=== PATIENT | female | born 1960 | race Caucasian/White ===

== ENCOUNTER 2020-08-17 12:17 | Emergency (ER) | payer OTHER, SELFPAY ==
[2020-08-17 12:25] VITALS: BP 123/71; PULSE 62; RESP 16; TEMP 37; O2SAT 96; BMI 21.6
--- NOTE | 2020-08-17 12:54 | ED.WEAKNESS ---
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 complaining of headache body aches not eating well no cold symptoms no cough no shortness of breath no urinary symptoms MD Complaint: generalized weakness Related Data Allergies Allergy/AdvReac Type Severity Reaction Status Date / Time aluminum hydroxide Allergy Severe ANAPHYLAXIS Unverified 05/29/20 15:25 [From Mylanta] calcium carbonate Allergy Severe ANAPHYLAXIS Unverified 05/29/20 15:25 [Calcium Carbonate] dextrose [From Metamucil] Allergy Severe ANAPHYLAXIS Unverified 05/29/20 15:25 magnesium [From Mylanta] Allergy Severe ANAPHYLAXIS Unverified 05/29/20 15:25 psyllium [From Metamucil] Allergy Severe ANAPHYLAXIS Unverified 05/29/20 15:25 simethicone [From Mylanta] Allergy Severe ANAPHYLAXIS Unverified 05/29/20 15:25 promethazine [From Phenergan] Allergy Mild EXTREME Unverified 05/29/20 15:25 TACHYCARDIA From Metamucil Allergy Severe ANAPHYLAXIS Uncoded 05/29/20 15:25 Metamucil Allergy Unknown anaphylaxis Uncoded 03/13/12 00:00 Mylanta Allergy Unknown anaphylaxis Uncoded 03/13/12 00:00 Phenergan Allergy Unknown tachycardia Uncoded 03/13/12 00:00 Review of Systems Review of Systems: REVIEW OF SYSTEMS: Pertinent positives and negatives are stated above in the history. GEN: no fevers, chills, fatigue+ HEENT: no nasal congestion, sore throat, ear pain NEURO: headache +, dizziness, focal weakness PULM: no cough, shortness of breath CV: no chest pain, palpitations, LE edema ABD: no abdominal pain, nausea, vomiting, diarrhea : no dysuria, urgency, frequency SKIN: no rash ROS otherwise negative x 10 PMFSH Social History Social History Smoked in Last 30 Days: No Use of substances other than those prescribed or required for medical reasons: No Advance Directives: No Advance Directives Information Provided: No Physical Exam Vital Signs: Vital Signs: Last Vital Signs Temp 98.6 F 08/17/20 12:25 Pulse 62 08/17/20 12:25 Resp 16 08/17/20 12:25 BP 123/71 08/17/20 12:25 Pulse Ox 96 08/17/20 12:25 Body Mass Index 21.6 VITAL SIGNS: Reviewed. GENERAL: Well developed, well nourished, in no acute distress. HEAD: Normocephalic/atraumatic, EYES: PERRLA No pallor/icterus noted OROPHARYNX: Oral mucosa moist no oral lesions NECK: Supple, no adenopathy LUNGS: Normal breath sounds. No adventitious sounds or accessory muscle use CARDIOVASCULAR: Regular rate and rhythm without noted murmurs, no JVD or lower extremity edema. ABDOMEN: Soft, non-tender, non-distended with normal bowel sounds. No rigidity. No guarding. No palpable masses or hernias noted MUSCULOSKELETAL: No tenderness, deformities, EXTREMITIES: No cyanosis or edema. SKIN: no rashes, ulcerations, jaundice, pallor, or petechiae NEUROLOGIC: Alert and oriented x 3. Strength and sensation to light touch were grossly intact normal speech MDM - Weakness MDM Narrative Medical decision making narrative: Patient nonspecific complex worried about a COVID infection without any symptoms except the weakness and headache COVID testing was done which was negative will discharge patient home advised to follow with PCP Lab Data Attestation: I reviewed the patient's lab results. Labs: Lab Results 08/17/20 Range/Units 12:36 Coronavirus (PCR) NEGATIVE (Negative) Influenza Type A (PCR) NEGATIVE (Negative) Influenza Type B (PCR) NEGATIVE (Negative) RSV RNA Qual (PCR) NEGATIVE (Negative) Discharge Plan Discharge Clinical Impression: Weakness Patient Disposition: Home, Self-Care Instructions: Weakness (ED) Additional Instructions: Drink plenty of fluids. You do not have COVID-19 infection at this time Tylenol for headache if needed
[2020-08-17 13:46] LABS: Influenza A PCR NEGATIVE (Negative); Influenza B PCR NEGATIVE (Negative); Resp Syncy Virus RNA Qual PCR NEGATIVE (Negative); SARS COV2 PCR INHOUSE NEGATIVE (Negative)
== END 2020-08-17 14:50 | disposition home or self-care (01) ==
PROVIDERS: Emergency Provider Internal Medicine; PCP Internal Medicine
DX: R51.9 Headache, unspecified (principal); R53.1 Weakness; Z20.828 Contact with and (suspected) exposure to other viral communicable diseases
CPT/HCPCS: 0241U; 99283

== ENCOUNTER 2020-08-19 16:51 | Emergency (ER) | payer OTHER, SELFPAY ==
[2020-08-19 16:56] VITALS: BP 122/74; PULSE 62; RESP 18; TEMP 36.9; O2SAT 96; BMI 19.2
--- NOTE | 2020-08-19 17:37 | ED_ITS ---
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 Patient is not on any pain medication and never behaved like this in the past. No fever no chills nausea no vomiting. Patient had dental work done about 2 weeks ago which seems to be doing okay Complaint: generalized weakness Onset (ago): day(s) (-) Related Data Home Medications Medication Instructions Recorded Confirmed No Known Home Meds 08/19/20 08/19/20 Allergies Allergy/AdvReac Type Severity Reaction Status Date / Time aluminum hydroxide Allergy Severe ANAPHYLAXIS Verified 08/19/20 20:01 [From Mylanta] calcium carbonate Allergy Severe ANAPHYLAXIS Verified 08/19/20 20:01 [Calcium Carbonate] dextrose [From Metamucil] Allergy Severe ANAPHYLAXIS Verified 08/19/20 20:01 magnesium [From Mylanta] Allergy Severe ANAPHYLAXIS Verified 08/19/20 20:01 psyllium [From Metamucil] Allergy Severe ANAPHYLAXIS Verified 08/19/20 20:01 simethicone [From Mylanta] Allergy Severe ANAPHYLAXIS Verified 08/19/20 20:01 promethazine [From Phenergan] Allergy Mild EXTREME Verified 08/19/20 20:01 TACHYCARDIA From Metamucil Allergy Severe ANAPHYLAXIS Uncoded 05/29/20 15:25 Metamucil Allergy Unknown anaphylaxis Uncoded 03/13/12 00:00 Mylanta Allergy Unknown anaphylaxis Uncoded 03/13/12 00:00 Phenergan Allergy Unknown tachycardia Uncoded 03/13/12 00:00 Review of Systems Review of Systems: REVIEW OF SYSTEMS: Pertinent positives and negatives are stated above in the history. given by pt GEN: no fevers, chills, fatigue HEENT: no nasal congestion, sore throat, ear pain NEURO: no headache, dizziness, focal weakness PULM: no cough, shortness of breath CV: no chest pain, palpitations, LE edema ABD: no abdominal pain, nausea, vomiting, diarrhea : no dysuria, urgency, frequency SKIN: no rash ROS otherwise negative x 10 PMFSH Social History Social History Alcohol intake: never Smoking Status: Never smoker Smoked in Last 30 Days: No Use of substances other than those prescribed or required for medical reasons: No Advance Directives: No Advance Directives Information Provided: Yes Physical Exam Vital Signs: Vital Signs: Last Vital Signs Temp 98.2 F 08/20/20 00:00 Pulse 59 08/20/20 00:00 Resp 14 08/20/20 00:00 BP 110/74 08/20/20 00:00 Pulse Ox 95 08/20/20 00:00 Body Mass Index 19.2 VITAL SIGNS: Reviewed. GENERAL: Well developed, well nourished, in no acute distress. HEAD: Normocephalic/atraumatic, EYES: PERRLA No pallor/icterus noted OROPHARYNX: Oral mucosa moist no oral lesions NECK: Supple, no adenopathy LUNGS: Normal breath sounds. No adventitious sounds or accessory muscle use CARDIOVASCULAR: Regular rate and rhythm without noted murmurs, no JVD or lower extremity edema. ABDOMEN: Soft, non-tender, non-distended with normal bowel sounds. No rigidity. No guarding. No palpable masses or hernias noted MUSCULOSKELETAL: No tenderness, deformities, EXTREMITIES: No cyanosis or edema. SKIN: no rashes, ulcerations, jaundice, pallor, or petechiae NEUROLOGIC: patient is confused when asked question was giving different answers but articulation was normal. sometimes patient was given the right answers, Alert and oriented x 2. Strength and sensation to light touch were grossly intact normal speech cerebellar signs are absent no focal deficit NIH Stroke Scale Internal: Initial- Upon Arrival Level of Consciousness: Alert Level of Consciousness Questions: Answers both questions correctly Level of Consciousness Commands: Performs both tasks correctly Best Gaze: Normal Visual: No visual loss Facial Palsy: Normal Motor Arm (Right): No drift Motor Arm (Left): No drift Motor Leg (Right): No drift Motor Leg (Left): No drift Limb Ataxia: Absent Sensory: Normal Best Language: No aphasia Dysarthia: Normal Extinction and Inattention: No abnormality Score: 0 Course Course Course Narrative: patient's acute change in mental status 4- 5 days duration with headache sometimes. CT scan of the head showed left frontal mass about 4.5 cm. Case discussed with neurologist Dr. Caldwell advised to transfer to [facility]. Case discussed with neurosurgeon MARIA C at [facility] advised to give IV Keppra 500 mg tonight patient already received 10 mg of Decadron in the ER rapid COVID is negative. Patient without any focal deficit GCS 15, Patient will be transferred to [facility] under hospitalist service Dr. Harrington. MDM - Weakness MDM Narrative Medical decision making narrative: patient with sudden change in personality confabulations etiology is not very clear will do the CT scan of the head to rule out frontal lobe tumor urine drug screen to rule out any substance abuse which is unlikely Medical Records Attestation: I reviewed the patient's medical records. Lab Data Attestation: I reviewed the patient's lab results. Result diagrams: 08/19/20 19:06 08/19/20 19:07 Labs: Lab Results 08/19/20 08/19/20 08/19/20 Range/Units 19:06 19:06 19:07 WBC 6.4 (4.8-10.8) X10*3/uL RBC 4.13 L (4.20-5.50) X10*6/uL Hgb 13.4 (12.0-16.0) g/dl Hct 39.5 (37-47) % MCV 95.6 (80-98) fL MCH 32.4 (27.0-33.0) pg MCHC 33.9 (31.0-35.0) g/dl RDW 11.9 (11.0-16.0) % Plt Count 248 (160-400) X10*3/uL MPV 9.8 (9.4-12.3) fL Immature Gran % (Auto) 0.3 (0.0-0.4) % Neut % (Auto) 81.5 H (45-73) % Lymph % (Auto) 12.5 L (20-40) % [place] % (Auto) 5.3 (2-11) % Eos % (Auto) 0.2 (0-4) % Baso % (Auto) 0.2 (0-2) % Lymph # (Auto) 0.8 L (1.2-4.9) X10*3/uL [place] # (Auto) 0.3 (0.1-1.2) X10*3/uL Eos # (Auto) 0.0 (0.0-0.4) X10*3/uL Baso # (Auto) 0.0 (0.0-0.2) X10*3/uL Abs Immat Gran (auto) 0.02 (0.00-0.03) X10*3/uL Absolute Neuts (auto) 5.2 (2.0-8.3) X10*3/uL Absolute Nucleated RBC 0.000 (0.0-0.012) X10*3/uL Nucleated RBC % (auto) 0.0 (0.0-0.2) /100WBC PT 13.2 H (10.8-13.0) SEC INR 1.1 (0.9-1.1) Sodium 142 (135-145) mmol/L Potassium 4.4 (3.3-5.1) mmol/l Chloride 103 (96-108) mmol/L Carbon Dioxide 28 (22-29) mmol/L Anion Gap 15 (12-20) BUN 29 H (9-16) mg/dL Creatinine 0.66 (0.5-1.4) mg/dL Estim Creat Clear Calc 84.3 Estimated GFR > 60 Random Glucose 103 (60-115) mg/dL Calcium 9.0 (8.4-10.2) mg/dL Total Bilirubin 0.4 (0.0-1.0) mg/dL Direct Bilirubin < 0.2 (0.0-0.5) mg/dL AST 22 (5-31) U/L ALT 14 (0-31) U/L Alkaline Phosphatase 83 (39-117) U/L Total Protein 7.0 (6.5-8.0) g/dL Albumin 4.1 (3.5-5.0) g/dL COVID-19 ([facility]) (Negative) COVID-19 Clin Com 08/19/20 Range/Units 20:11 WBC (4.8-10.8) X10*3/uL RBC (4.20-5.50) X10*6/uL Hgb (12.0-16.0) g/dl Hct (37-47) % MCV (80-98) fL MCH (27.0-33.0) pg MCHC (31.0-35.0) g/dl RDW (11.0-16.0) % Plt Count (160-400) X10*3/uL MPV (9.4-12.3) fL Immature Gran % (Auto) (0.0-0.4) % Neut % (Auto) (45-73) % Lymph % (Auto) (20-40) % [place] % (Auto) (2-11) % Eos % (Auto) (0-4) % Baso % (Auto) (0-2) % Lymph # (Auto) (1.2-4.9) X10*3/uL [place] # (Auto) (0.1-1.2) X10*3/uL Eos # (Auto) (0.0-0.4) X10*3/uL Baso # (Auto) (0.0-0.2) X10*3/uL Abs Immat Gran (auto) (0.00-0.03) X10*3/uL Absolute Neuts (auto) (2.0-8.3) X10*3/uL Absolute Nucleated RBC (0.0-0.012) X10*3/uL Nucleated RBC % (auto) (0.0-0.2) /100WBC PT (10.8-13.0) SEC INR (0.9-1.1) Sodium (135-145) mmol/L Potassium (3.3-5.1) mmol/l Chloride (96-108) mmol/L Carbon Dioxide (22-29) mmol/L Anion Gap (12-20) BUN (9-16) mg/dL Creatinine (0.5-1.4) mg/dL Estim Creat Clear Calc Estimated GFR Random Glucose (60-115) mg/dL Calcium (8.4-10.2) mg/dL Total Bilirubin (0.0-1.0) mg/dL Direct Bilirubin (0.0-0.5) mg/dL AST (5-31) U/L ALT (0-31) U/L Alkaline Phosphatase (39-117) U/L Total Protein (6.5-8.0) g/dL Albumin (3.5-5.0) g/dL COVID-19 ([facility]) Negative (Negative) COVID-19 Clin Com See Note Discharge Plan Discharge Clinical Impression: Brain neoplasm Patient Disposition: Xfer Other Additional Instructions: transfer to [facility] Prescriptions: No Action No Known Home Meds RF: 0
--- NOTE | 2020-08-19 18:07 | XR_ITS ---
EXAMINATION: XR CHEST CLINICAL INFORMATION: Altered mental status COMPARISON: Chest x-ray 03/20/2012 TECHNIQUE: Frontal portable view of the chest was obtained. 6:14 PM FINDINGS: No significant abnormality is noted involving the heart, lungs, mediastinum, bony thorax or soft tissues. XR/XR chest 1V IMPRESSION: Unremarkable examination.
--- NOTE | 2020-08-19 18:07 | CT_ITS ---
EXAMINATION: CT HEAD WITHOUT CONTRAST CLINICAL INFORMATION: Altered mental status. COMPARISON: Chest radiograph from 08/19/2020. TECHNIQUE: Contiguous axial imaging was performed from the skull base to vertex without intravenous administration of contrast. DLP: 659 mGy-cm FINDINGS: There is a heterogeneous lesion in the anterior left frontal lobe that is peripherally hyperattenuating and centrally hypoattenuating, measuring 4.3 x 4.1 x 2.9 cm. Moderate surrounding expansile white matter hypoattenuation, predominantly within the left frontal lobe but slightly extending into the deep white matter tracts and left temporal lobe. Associated regional mass effect on the left frontal lobe sulci along with rightward subfalcine herniation. There is 0.6 cm rightward midline shift. Minimal downward mass effect on the left aspect of the optic chiasm. Otherwise, the suprasellar cistern remains widely patent. No demonstrated acute intracranial hemorrhagic products. No evidence of additional space occupying lesions on the limited noncontrast evaluation. The third ventricle is slitlike. No evidence of hydrocephalus/entrapment at this time. No extra-axial fluid collection. No acute soft tissue or osseous abnormalities. Mild mucosal thickening of the paranasal sinuses. The mastoid air cells and middle ear cavities are clear. CT/CT head/brain wo con IMPRESSION: There is a 4.3 cm heterogeneous mass lesion centered within the left frontal lobe. Expansile white matter hypoattenuation predominantly throughout the left frontal lobe with extension into the deep white matter tracts and left temporal lobe. There is a 0.6 cm rightward midline shift. No evidence of acute intracranial hemorrhage. No demonstrated additional space-occupying lesions on this limited noncontrast evaluation. Leading considerations include a metastatic lesion versus a primary glial neoplasm.
[2020-08-19] MEDS: 0.9 % Sodium Chloride 1,000 ML 999 ML IVCONT (19:09)
[2020-08-19 19:15] LABS: Basophils Percent Auto 0.2 % (0-2); Eosinophils Percent Auto 0.2 % (0-4); Hematocrit 39.5 % (37-47); Hemoglobin 13.4 g/dl (12.0-16.0); Imm Gran Abs Auto 0.02 X10*3/uL (0.00-0.03); Imm Gran Pct Auto 0.3 % (0.0-0.4); Lymphocytes Absolute Auto 0.8 X10*3/uL (1.2-4.9); Lymphocytes Percent Auto 12.5 % (20-40); Mean Corpuscular HGB Conc 33.9 g/dl (31.0-35.0); Mean Corpuscular Hemoglobin 32.4 pg (27.0-33.0); Mean Corpuscular Volume 95.6 fL (80-98); Mean Platelet Volume 9.8 fL (9.4-12.3); Monocytes Absolute Auto 0.3 X10*3/uL (0.1-1.2); Monocytes Percent Auto 5.3 % (2-11); Neutrophils Absolute Auto 5.2 X10*3/uL (2.0-8.3); Neutrophils Percent Auto 81.5 % (45-73); Platelet Count 248 X10*3/uL (160-400); Red Blood Count 4.13 X10*6/uL (4.20-5.50); Red Cell Distribution Width 11.9 % (11.0-16.0); White Blood Count 6.4 X10*3/uL (4.8-10.8)
[2020-08-19] MEDS: dexAMETHasone sod phosphate 4 MG/ML VIAL 10 MG IVPUSH (19:15)
[2020-08-19 19:16] LABS: MANUAL DIFF FLAG NO
[2020-08-19 19:20] LABS: INTERNATIONAL NORM RATIO 1.1 (0.9-1.1); Prothrombin Time 13.2 SEC (10.8-13.0)
[2020-08-19 19:43] LABS: Alanine Aminotransferase 14 U/L (0-31); Albumin Level 4.1 g/dL (3.5-5.0); Alkaline Phosphatase 83 U/L (39-117); Anion Gap 15 (12-20); Aspartate Amino Transferase 22 U/L (5-31); Bilirubin Direct < 0.2 mg/dL (0.0-0.5); Bilirubin Total 0.4 mg/dL (0.0-1.0); Blood Urea Nitrogen 29 mg/dL (9-16); Carbon Dioxide 28 mmol/L (22-29); Chloride 103 mmol/L (96-108); Creatinine Clr Calc Pharmacy 84.3; Estimated Glomerular Filt Rate > 60; Glucose Random 103 mg/dL (60-115); Potassium 4.4 mmol/l (3.3-5.1); Sodium 142 mmol/L (135-145)
[2020-08-19 20:00] VITALS: BP 126/77; PULSE 62; RESP 18; TEMP 36.6; O2SAT 98
[2020-08-19 20:34] LABS: COVID-19 Test Negative (Negative); IDNOW Serial# 9DD0AD1C
[2020-08-19] MEDS: levETIRAcetam in NaCl (iso-os) 500 MG/100 ML PIGGYBACK 400 MG IV (20:45)
--- NOTE | 2020-08-19 20:57 | PC.NURSE ---
Pt passed swallow eval. Pt to be NPO. Per MD, [place] [facility] [place] to be done. at bedside. Pt will be transferred [place] [facility] 5A BED 40B. RN-RN (Rea) report given at this time
--- NOTE | 2020-08-19 21:56 | PC.NURSE ---
at bedside updated on plan of care.
[2020-08-19 22:00] VITALS: BP 108/76; PULSE 63; RESP 17; TEMP 36.7; O2SAT 95
[2020-08-20] VITALS: BP 110/74; PULSE 59; RESP 14; TEMP 36.8; O2SAT 95
== END 2020-08-20 00:47 | disposition other institution (70) ==
PROVIDERS: Emergency Provider Internal Medicine; PCP Internal Medicine
DX: D43.2 Neoplasm of uncertain behavior of brain, unspecified (principal); R53.1 Weakness; R41.82 Altered mental status, unspecified; Z20.828 Contact with and (suspected) exposure to other viral communicable diseases
CPT/HCPCS: 36415; 70450; 71045; 80048; 80076; 85025; 85610; 87635; 96361; 96374; 96375; 96376; 99284; 99285; J1100; J1953

== ENCOUNTER 2022-01-15 09:02 | Outpatient (REF) | payer OTHER, SELFPAY ==
[2022-01-15 11:12] LABS: MANUAL DIFF FLAG NO
[2022-01-15 11:23] LABS: Basophils Percent Auto 0.4 % (0-2); Eosinophils Absolute Auto 0.2 X10*3/uL (0.0-0.4); Eosinophils Percent Auto 5.3 % (0-4); Hematocrit 42.4 % (37.0-47.0); Imm Gran Abs Auto 0.01 X10*3/uL (0.00-0.03); Imm Gran Pct Auto 0.4 % (0.0-0.4); Lymphocytes Absolute Auto 1.1 X10*3/uL (1.2-4.9); Lymphocytes Percent Auto 39.8 % (20-40); Mean Corpuscular Hemoglobin 32.5 pg (27.0-33.0); Mean Corpuscular Volume 98.4 fL (80.0-98.0); Mean Platelet Volume 10.4 fL (9.4-12.3); Monocytes Absolute Auto 0.2 X10*3/uL (0.1-1.2); Monocytes Percent Auto 7.4 % (2-11); Neutrophils Absolute Auto 1.3 x10*3/uL (2.0-8.3); Neutrophils Percent Auto 46.7 % (45-73); Platelet Count 225 X10*3/uL (160-400); Red Blood Count 4.31 X10*6/uL (4.20-5.50); Red Cell Distribution Width 12.4 % (11.0-16.0); White Blood Count 2.8 X10*3/uL (4.8-10.8)
[2022-01-15 11:49] LABS: Alanine Aminotransferase 19 U/L (0-31); Albumin Level 4.2 g/dL (3.5-5.0); Alkaline Phosphatase 85 U/L (39-117); Anion Gap 13 (12-20); Aspartate Amino Transferase 24 U/L (5-31); Bilirubin Total 0.8 mg/dL (0.0-1.0); Blood Urea Nitrogen 19 mg/dL (9-16); Calcium 9.7 mg/dL (8.4-10.2); Carbon Dioxide 26 mmol/L (22-29); Chloride 108 mmol/L (96-108); Cholesterol 234 mg/dL; Estimated Glomerular Filt Rate > 60; Glucose Fasting 81 mg/dL (60-99); HDL Cholesterol 52 mg/dL; LDL Cholesterol Calculated 160 mg/dl; Sodium 143 mmol/L (135-145); Total Protein 6.7 g/dL (6.5-8.0); Triglycerides 113 mg/dL
[2022-01-15 12:22] LABS: Vitamin D 25-OH Total 42.3 ng/mL (>30)
[2022-01-15 13:58] LABS: Appearance Urine CLEAR; Color Urine YELLOW; Glucose Urine UA NEG (NEG); Leukocyte Esterase Urine NEG (NEG); Nitrite Urine NEG (NEG); PH 6.5 (5.0-8.0); Specific Gravity - Urine 1.015 (1.005-1.025); Urine Blood NEG (NEG); Urine Ketones NEG (NEG); Urine Protein NEG (NEG-TRACE)
[2022-01-15 14:20] LABS: RBC Urine 0 /HPF (0); Squamous Epithelial Cell Urine TRACE /LPF; WBC Urine 0-2 /HPF (0-4)
== END 2022-01-15 09:03 | disposition home or self-care (01) ==
LOC: HO.HMGCLDS 09:02
PROVIDERS: PCP Internal Medicine; Visit Provider Internal Medicine
DX: Z00.00 Encounter for general adult medical examination without abnormal findings (principal); E78.00 Pure hypercholesterolemia, unspecified
CPT/HCPCS: 36415; 80053; 80061; 81001; 82306; 84443; 85025